=== PATIENT | female | born 1965 | race Caucasian/White ===

== ENCOUNTER 2016-12-31 17:02 | Emergency (ER) | payer BC, OTHER ==
[~2016-12-31 17:02] MED LIST: PROTONIX40 MG PO
[2016-12-31 17:33] LABS: HEMOGLOBIN 11.5 gm/dl (12.3-15.3); WHITE BLOOD COUNT 6.6 K/UL (4.5-11.0)
[2016-12-31 17:59] LABS: BUN/CREATININE RATIO 18 (0-10)
== END 2016-12-31 20:28 | disposition home or self-care (01) ==
LOC: ER1 17:02
PROVIDERS: Specialist/Technologist Athletic Trainer
DX: R10.11 Right upper quadrant pain (principal)
CPT/HCPCS: 36415; 71010; 80053; 81001; 82550; 82553; 83605; 83874; 84484; 85025; 87040; 87086; 93005; 96372; 96374; 96375; 96376; 99284; J1630; J2270; J2405

== ENCOUNTER → 2020-10-22 | Outpatient (CLI) | payer BC, OTHER ==
[~2020-10-22] MED LIST changes: +ACID CONTROLLER20 MG PO; +ATROVENT HFA12.9 GM INH; +AUGMENTIN 875-1 EACH PO; +CHRONULAC20 GM/30 M PO; +CIPRO500 MG PO; +CLARITIN 10MG T10 MG PO; +COLACE100 MG PO; +CRESTOR 10 MG T10 MG PO; +CYCLOBENZAPRINE5 MG PO; +DEXILANT60 MG PO; +DULCOLAX10 MG PR; +EFFEXOR XR75 MG PO; +ERYTHROMYCIN O3.5 GM OP; +FISH OIL 1,0001 EAC1 PO; +FLAGYL500 MG PO; +IBUPROFEN800 MG PO; +K-DUR TAB 20 M20 MEQ PO; +KLONOPIN1 MG PO; +LEVOTHYROXINE50 MCG PO; +MEDROL DOSEPAK 24 MG PO; +NAPROSYN EC 50500 MG PO; +NEURONTIN 400400 MG PO; +NORCO 10-325 T1 EACH PO; +NORCO 5-325 TA1 EACH PO; +PHENERGAN 25 MG25 M1 PO; +VITAMIN D21250 MCG PO; +VITAMIN D350000 UNIT PO; +XIIDRA EYEBOTH; +ZANTAC150 MG PO; +ZITHROMAX250 MG PO; +ZOFRAN4 MG PO; +ZYRTEC10 MG PO; +[UNRECOGNIZED DRUG - SUPPLY]; +[UNRECOGNIZED DRUG - SUPPLY] UR
== END ==
LOC: MAMO 09:19
DX: Z12.31 Encounter for screening mammogram for malignant neoplasm of breast (principal); Z53.8 Procedure and treatment not carried out for other reasons

== ENCOUNTER 2021-01-18 22:47 | Emergency (ER) | payer OTHER ==
[2021-01-18 23:45] LABS: HEMOGLOBIN 12.8 gm/dl (12.3-15.3); RED BLOOD COUNT 4.46 M/UL (4.00-5.10); WHITE BLOOD COUNT 10.3 K/UL (4.5-11.0)
[2021-01-19 00:09] LABS: BUN/CREATININE RATIO 17 (0-10)
== END 2021-01-19 07:00 | disposition home or self-care (01) ==
LOC: ER1 22:47
PROVIDERS: Family Medicine
DX: Z04.1 Encounter for examination and observation following transport accident (principal); Z88.6 Allergy status to analgesic agent
CPT/HCPCS: 70450; 71045; 71275; 72125; 72170; 80053; 80307; 81001; 82550; 82553; 84484; 85025; 85610; 99284; G0480; Q9967

== ENCOUNTER 2021-02-05 21:33 | Emergency (ER) | payer BC, OTHER ==
[2021-02-05 22:35] LABS: RED BLOOD COUNT 4.19 M/UL (4.00-5.10); WHITE BLOOD COUNT 8.9 K/UL (4.5-11.0)
[2021-02-05 23:19] LABS: BUN/CREATININE RATIO 12 (0-10)
== END 2021-02-06 03:04 | disposition home or self-care (01) ==
LOC: ER1 21:33
PROVIDERS: Family Medicine
DX: S06.0X0A Concussion without loss of consciousness, initial encounter (principal); W01.0XXA Fall on same level from slipping, tripping and stumbling without subsequent striking against object, initial encounter; Y92.89 Other specified places as the place of occurrence of the external cause
CPT/HCPCS: 70450; 71111; 72125; 73502; 80053; 80307; 81001; 82550; 82553; 84484; 85025; 85610; 93005; 96374; 96375; 99284; G0480; J2405; Q9967

== ENCOUNTER → 2021-05-15 | Outpatient (CLI) | payer BC, OTHER | LOC: EXRD 11:30 → MAMO 13:10 | DX: Z12.31 Encounter for screening mammogram for malignant neoplasm of breast (principal); M81.0 Age-related osteoporosis without current pathological fracture | CPT/HCPCS: 77063; 77067; 77080 ==

== ENCOUNTER → 2021-06-24 | Outpatient (CLI) | payer BC, OTHER | LOC: KOH-I 10:38 | DX: M47.26 Other spondylosis with radiculopathy, lumbar region (principal) | CPT/HCPCS: 72148 ==